=== PATIENT | male | born 1970 | race African-American/Black ===

== ENCOUNTER 2020-08-20 01:45 | Observation (INO) | payer OTHER ==
[2020-08-20 02:32] VITALS: BMI 22.3
[2020-08-20 02:46] LABS: HEMATOCRIT 37.1 % (35.4-49); MCH 27.7 pg (25.7-33.7); MCHC 32.3 g/dl (32.0-35.9); MEAN CELL VOLUME 85.7 fl (80-96); MEAN PLT VOLUME 9.6 fl (7.5-11.1); PLATELET COUNT 135 10^3/uL (134-434); RBC 4.33 M/mm3 (4.00-5.60); RDW 15.3 % (11.9-15.9)
[2020-08-20 02:55] LABS: INR 1.03 (0.83-1.09); PROTHROMBIN TIME (PATIENT) 12.6 SEC (9.7-13.0)
[2020-08-20 03:05] LABS: CHLORIDE 108 mmol/L (98-107); SODIUM 143 mmol/L (136-145)
[2020-08-20 03:07] LABS: CALCIUM 8.7 mg/dL (8.5-10.1)
[2020-08-20 03:08] LABS: ALBUMIN 4.3 g/dl (3.4-5.0); ANION GAP 6 MMOL/L (8-16); BLOOD UREA NITROGEN 18.8 mg/dL (7-18); CO2 30 mmol/L (21-32); GLUCOSE,RANDOM 88 mg/dL (74-106)
[2020-08-20 03:11] LABS: CREATININE 1.2 mg/dL (0.55-1.3); SGOT/AST 17 U/L (15-37); SGPT/ALT 38 U/L (13-61)
[2020-08-20 03:12] LABS: BILIRUBIN,TOTAL 0.8 mg/dL (0.2-1)
[2020-08-20 03:13] LABS: TOT PROT 7.3 g/dl (6.4-8.2)
[2020-08-20 03:14] LABS: ALK PHOS 53 U/L (45-117)
[2020-08-20 04:22] LABS: LIPASE 192 U/L (73-393)
[2020-08-20] MEDS ORDERED: FAMOTIDINE 20 MG/50 ML IVPB 20 MG/50 ML MG IVPB ONE (04:56)
[2020-08-20] MEDS ORDERED: MAG HYDROX/AL HYDROX/SIMETH -MYLANTA- ORAL SUSPENSION PO ONE (04:56)
[2020-08-20] MEDS ORDERED: ACETAMINOPHEN 1000 MG/100 ML VIAL (NON FORMULARY) IVPB ONE (04:56)
[2020-08-20] MEDS ORDERED: MAG HYDROX/AL HYDROX/SIMETH 30 ML UNIT-DOSE CUP ONE (05:00)
[2020-08-20] MEDS ORDERED: ASPIRIN 81 MG CHEWABLE TABLETS PO ONE (05:30)
[2020-08-20] MEDS ORDERED: ASPIRIN 81 MG CHEWABLE TABLETS ONE (06:48)
[2020-08-20] MEDS ORDERED: ACETAMINOPHEN 325 MG TABLET (FP) PO PRN (09:49)
[2020-08-20] MEDS ORDERED: ASPIRIN 81 MG CHEWABLE TABLETS PO SCH (10:00)
[2020-08-20] MEDS ORDERED: PANTOPRAZOLE 20 MG TABLET PO SCH (12:45)
[2020-08-20] MEDS ORDERED: PANTOPRAZOLE 20 MG TABLET PO ONE (13:49)
[2020-08-20 14:56] VITALS: TEMP 98.5
[2020-08-20 21:19] VITALS: BP 121/74; PULSE 68
[2020-08-21] MEDS ORDERED: ASPIRIN 81 MG CHEWABLE TABLETS PO SCH (10:00)
== END 2020-08-20 21:19 | disposition left against medical advice (07) ==
LOC: JER 01:45 → JERBED 02:13
PROC: 3E033NZ Introduction of Analgesics, Hypnotics, Sedatives into Peripheral Vein, Percutaneous Approach (ICD-10-PCS; principal; 2020-08-20)
PROC: 3E033GC Introduction of Other Therapeutic Substance into Peripheral Vein, Percutaneous Approach (ICD-10-PCS; 2020-08-20)
DX: R07.9 Chest pain, unspecified (principal); I51.7 Cardiomegaly; K21.9 Gastro-esophageal reflux disease without esophagitis; M79.621 Pain in right upper arm
CPT/HCPCS: 36415; 71045-TC-FY; 80053; 83690; 84484; 85027; 85379; 85610; 93005; 93010; 96365; 96375; 99285-25; C9803; G0378; J0131; U0003; U0005